=== PATIENT | female | born 1980 | race Caucasian/White ===

== ENCOUNTER 2021-06-04 09:14 | Emergency (ER) | payer OTHER ==
[2021-06-04] MEDS ORDERED: BENADRYL25 MG PO (12:20)
[2021-06-04] MEDS ORDERED: PEPCID20 MG PO (12:20)
[2021-06-04] MEDS ORDERED: MEDROL DOSEPAK 24 MG PO (12:20)
== END 2021-06-04 12:28 | disposition home or self-care (01) ==
LOC: ER1 09:14
DX: T78.40XA Allergy, unspecified, initial encounter (principal); L50.0 Allergic urticaria; K21.9 Gastro-esophageal reflux disease without esophagitis; Z88.5 Allergy status to narcotic agent; Z88.8 Allergy status to other drugs, medicaments and biological substances; Z79.1 Long term (current) use of non-steroidal anti-inflammatories (NSAID); Z79.84 Long term (current) use of oral hypoglycemic drugs; Z79.899 Other long term (current) drug therapy
CPT/HCPCS: 96374; 96375; 99283; J1885; J2930; J7040